=== PATIENT | female | born 1945 | race Caucasian/White ===

== ENCOUNTER 2017-08-20 01:30 | Inpatient (IN) | payer MEDICARE, MEDICAID ==
[~2017-08-20] VITALS: Ht 152.4 cm; Wt 47.7 kg
[~2017-08-20 01:30] MED LIST: ALBU2.5V NEB; ALBU8.5H5 INH; CALC-112 PO; CLIN300C8 PO; ENOX40SY4 SQ; FLUO10TA PO; FURO-93 PO; Fentanyl Patch TD; GABA300C10 PO; LORA-445 PO; MULT-6 PO; OMEP-110 PO; OXYC5CAP2 PO; POTA10TA11 PO; Robitussin PO
[2017-08-20] MEDS ORDERED: HYDR-3240 PO (02:07)
[2017-08-20] MEDS ORDERED: TRAM50TA2 PO (02:07)
[2017-08-20] MEDS ORDERED: LISI5TAB7 PO (02:07)
[2017-08-20] MEDS ORDERED: ALEN70TA5 PO (02:07)
[2017-08-20] MEDS ORDERED: SUVO15TA PO (02:07)
[2017-08-20] MEDS ORDERED: MELO7.5T31 PO (02:07)
[2017-08-20] MEDS ORDERED: ALBUTEROL/IPRATROPIUM 2.5MG/0.5MG, 3 ML NPPB ONE (02:30)
[2017-08-20 02:34] LABS: MEAN CORPUSCULAR HEMOGLOBIN 27.9 pg (27.0-34.8); MEAN CORPUSCULAR HGB CONC 32.9 g/dL (32.4-35.8); MEAN CORPUSCULAR VOLUME 84.9 fL (80-100); MEAN PLATELET VOLUME 7.5 fL (7.4-10.4); PLATELET COUNT 338 x10^3/uL (130-400); RED BLOOD COUNT 4.23 x10^6/uL (3.82-5.3); RED CELL DISTRIBUTION WIDTH 15.1 % (9.6-15.2)
[2017-08-20 02:46] LABS: ALBUMIN 2.8 g/dL (3.4-5.0); ANION GAP 8 mmol/L (5-15); CALCIUM 8.2 mg/dL (8.5-10.1); CHLORIDE 104 mmol/L (98-107); CREATININE 1.56 mg/dL (0.55-1.02)
[2017-08-20 02:52] LABS: TROPONIN I 0.216 ng/mL (0.000-0.045)
[2017-08-20 02:55] LABS: MD YES
[2017-08-20 02:56] LABS: BAND#(MANUAL) 0.51 x10^3/uL; BANDS%(MANUAL) 3 % (0-7); LYMPH#(MANUAL) 0.85 x10^3/uL (1-3.4); LYMPHS% (MANUAL) 5 % (22-44); MONOS#(MANUAL) 1.02 x10^3/uL (0.3-2.7); MONOS% (MANUAL) 6 % (2-9); SEG#(MANUAL) 14.62 x10^3/uL (1.8-6.8); SEGS% (MANUAL) 86 % (42-75)
[2017-08-20 02:57] LABS: <PLATELET ESTIMATE> ADEQUATE; <PLT MORPHOLOGY> NORMAL PLT MORPH; ANISOCYTOSIS 1+; POLYCHROMASIA 1+
[2017-08-20] MEDS ORDERED: OMNIPAQUE 350 MG/ML, 100ML BOTTLE ONE (03:24)
[2017-08-20] MEDS ORDERED: ALBUTEROL/IPRATROPIUM 2.5MG/0.5MG, 3 ML ONE (03:30)
[2017-08-20] MEDS ORDERED: SODIUM CHLORIDE 0.9% 1,000ML IVBOLUS ONE (03:30)
[2017-08-20] MEDS ORDERED: CEFTRIAXONE PMX 1GM/50ML 50 ML IV ONE (04:00)
[2017-08-20] MEDS ORDERED: ONDANSETRON 2MG/ML, 2ML IVPush PRN ×2 (04:00→07:00)
[2017-08-20] MEDS ORDERED: CEFTRIAXONE PMX 1GM/50ML 50 ML ONE (04:12)
[2017-08-20 05:45] VITALS: BP 121/90
[2017-08-20] MEDS ORDERED: ACETAMINOPHEN 325 MG TABLET PO PRN (07:00)
[2017-08-20] MEDS ORDERED: FUROSEMIDE 40 MG/4 ML IV ONE (07:30)
[2017-08-20] MEDS ORDERED: ENOXAPARIN 30 MG/0.3 ML SQ SCH (07:30)
[2017-08-20] MEDS ORDERED: ALBUTEROL/IPRATROPIUM 2.5MG/0.5MG, 3 ML NPPB PRN (08:00)
[2017-08-20] MEDS: methylPREDNISolone SOD SUCC 40 MG/ML IVPush SCH ×3 (08:18→19:29)
[2017-08-20] MEDS: GABAPENTIN 300 MG CAPSULE PO SCH ×2 (08:19→20:37)
[2017-08-20] MEDS: NICOTINE 14MG/24 HR PATCH.TD24 TD SCH (08:19)
[2017-08-20] MEDS: LISINOPRIL 5 MG TABLET PO SCH (08:19)
[2017-08-20] MEDS: OMEPRAZOLE 20 MG CAPSULE.DR PO SCH (08:19)
[2017-08-20 08:20] VITALS: BP 115/77
[2017-08-20] MEDS: SUVOREXANT 15 MG HOMEMEDPO SCH (08:22)
[2017-08-20 08:49] LABS: TROPONIN I 0.198 ng/mL (0.000-0.045)
[2017-08-20] MEDS: ALBUTEROL/IPRATROPIUM 2.5MG/0.5MG, 3 ML NPPB SCH ×3 (10:31→19:39)
[2017-08-20 14:35] VITALS: BP 126/81
[2017-08-20 15:00] VITALS: BP 118/82
[2017-08-20] MEDS ORDERED: LORazepam 2 MG/ML, 1ML IVPush PRN (17:30)
[2017-08-20 20:12] VITALS: BP 136/72
[2017-08-20] MEDS: LORazepam 0.5MG TABLET PO SCH (20:37)
[2017-08-20] MEDS: GUAIFENESIN/DM 200-20MG, 10ML UDC PO PRN (20:37)
[2017-08-20] MEDS: HYDROcodone/APAP 5/325 TABLET PO PRN (20:55)
[2017-08-21] MEDS: methylPREDNISolone SOD SUCC 40 MG/ML IVPush SCH ×2 (01:09→08:03)
[2017-08-21 02:18] VITALS: BP 125/83
[2017-08-21 03:06] VITALS: BP 136/89
[2017-08-21 06:10] LABS: CHLORIDE 106 mmol/L (98-107)
[2017-08-21 06:17] LABS: MEAN CORPUSCULAR HEMOGLOBIN 28.1 pg (27.0-34.8); MEAN CORPUSCULAR HGB CONC 32.8 g/dL (32.4-35.8); MEAN CORPUSCULAR VOLUME 85.7 fL (80-100); MEAN PLATELET VOLUME 7.8 fL (7.4-10.4); PLATELET COUNT 310 x10^3/uL (130-400); RED BLOOD COUNT 4.25 x10^6/uL (3.82-5.3); RED CELL DISTRIBUTION WIDTH 15.6 % (9.6-15.2)
[2017-08-21 06:31] LABS: ALANINE AMINOTRANSFERASE 20 U/L (12-78); ALBUMIN 2.8 g/dL (3.4-5.0); ALKALINE PHOSPHATASE 130 U/L (45-117); ANION GAP 10 mmol/L (5-15); BILIRUBIN,TOTAL 0.4 mg/dL (0.2-1.0); CALCIUM 8.1 mg/dL (8.5-10.1); CREATININE 0.87 mg/dL (0.55-1.02); TOTAL PROTEIN 6.9 g/dL (6.4-8.2)
[2017-08-21 06:33] LABS: BASOPHILS % (AUTO) 0 % (0-1); EOSINOPHILS % (AUTO) 0 % (1-7); LYMPHOCYTES # (AUTO) 0.67 x10^3/uL (1-3.4); LYMPHOCYTES % (AUTO) 6 % (22-44); MD SCAN; MONOCYTES # (AUTO) 0.24 x10^3/uL (0.2-0.8); MONOCYTES % (AUTO) 2 % (2-9); NEUTROPHILS # (AUTO) 9.83 x10^3/uL (1.8-6.8); NEUTROPHILS % (AUTO) 92 % (42-75)
[2017-08-21] MEDS: ALBUTEROL/IPRATROPIUM 2.5MG/0.5MG, 3 ML NPPB SCH ×4 (07:15→18:53)
[2017-08-21 08:00] VITALS: BP 157/100
[2017-08-21] MEDS: FUROSEMIDE 40 MG TABLET PO SCH (08:02)
[2017-08-21] MEDS: NICOTINE 14MG/24 HR PATCH.TD24 TD SCH (08:02)
[2017-08-21] MEDS: LISINOPRIL 5 MG TABLET PO SCH (08:03)
[2017-08-21] MEDS: SUVOREXANT 15 MG HOMEMEDPO SCH (08:03)
[2017-08-21] MEDS: ENOXAPARIN 40 MG/0.4 ML SQ SCH (08:03)
[2017-08-21] MEDS: OMEPRAZOLE 20 MG CAPSULE.DR PO SCH (08:03)
[2017-08-21] MEDS: GABAPENTIN 300 MG CAPSULE PO SCH ×2 (08:03→20:07)
[2017-08-21 12:11] LABS: CULTURE INDICATED? NO; MICROSCOPIC NOT IND
[2017-08-21 13:28] VITALS: BP 137/90
[2017-08-21] MEDS: HYDROcodone/APAP 5/325 TABLET PO PRN ×2 (16:28→20:07)
[2017-08-21 19:36] VITALS: BP_SYST 151; BP_SYST 186; BP_DIAS 104; BP_DIAS 84
[2017-08-21] MEDS: LORazepam 0.5MG TABLET PO SCH (20:07)
[2017-08-22 01:53] VITALS: BP 147/89
[2017-08-22] MEDS: GUAIFENESIN/DM 200-20MG, 10ML UDC PO PRN ×2 (02:51→17:21)
[2017-08-22] MEDS: HYDROcodone/APAP 5/325 TABLET PO PRN ×3 (02:51→17:21)
[2017-08-22 05:26] LABS: ALBUMIN 2.8 g/dL (3.4-5.0); ANION GAP 4 mmol/L (5-15); CHLORIDE 103 mmol/L (98-107)
[2017-08-22 05:31] LABS: ALANINE AMINOTRANSFERASE 21 U/L (12-78); ALKALINE PHOSPHATASE 115 U/L (45-117); BILIRUBIN,TOTAL 0.4 mg/dL (0.2-1.0); TOTAL PROTEIN 6.5 g/dL (6.4-8.2)
[2017-08-22] MEDS: ALBUTEROL/IPRATROPIUM 2.5MG/0.5MG, 3 ML NPPB SCH ×4 (07:40→19:28)
[2017-08-22 08:17] VITALS: BP 182/101
[2017-08-22 08:29] VITALS: BP 160/101
[2017-08-22] MEDS: GABAPENTIN 300 MG CAPSULE PO SCH ×2 (08:30→20:31)
[2017-08-22] MEDS: FUROSEMIDE 40 MG TABLET PO SCH (08:30)
[2017-08-22] MEDS: OMEPRAZOLE 20 MG CAPSULE.DR PO SCH (08:30)
[2017-08-22] MEDS: NICOTINE 14MG/24 HR PATCH.TD24 TD SCH (08:31)
[2017-08-22] MEDS: ENOXAPARIN 40 MG/0.4 ML SQ SCH (08:31)
[2017-08-22] MEDS: SUVOREXANT 15 MG HOMEMEDPO SCH (08:31)
[2017-08-22] MEDS: LISINOPRIL 5 MG TABLET PO SCH (08:31)
[2017-08-22 13:01] VITALS: BP 150/95
[2017-08-22 16:13] VITALS: BP 134/90
[2017-08-22 19:08] VITALS: BP 146/95
[2017-08-22] MEDS: LORazepam 0.5MG TABLET PO SCH (20:31)
[2017-08-23 01:02] VITALS: BP 151/96
[2017-08-23] MEDS: HYDROcodone/APAP 5/325 TABLET PO PRN ×2 (01:53→09:36)
[2017-08-23 05:41] LABS: ANION GAP 4 mmol/L (5-15); CALCIUM 8.4 mg/dL (8.5-10.1); CHLORIDE 97 mmol/L (98-107); CREATININE 0.65 mg/dL (0.55-1.02)
[2017-08-23 06:48] VITALS: BP 140/91
[2017-08-23] MEDS: ALBUTEROL/IPRATROPIUM 2.5MG/0.5MG, 3 ML NPPB SCH ×4 (07:16→14:52)
[2017-08-23] MEDS: SUVOREXANT 15 MG HOMEMEDPO SCH (09:00)
[2017-08-23] MEDS: ENOXAPARIN 40 MG/0.4 ML SQ SCH (09:03)
[2017-08-23] MEDS: OMEPRAZOLE 20 MG CAPSULE.DR PO SCH (09:04)
[2017-08-23] MEDS: GABAPENTIN 300 MG CAPSULE PO SCH (09:04)
[2017-08-23] MEDS: LISINOPRIL 5 MG TABLET PO SCH (09:04)
[2017-08-23] MEDS: NICOTINE 14MG/24 HR PATCH.TD24 TD SCH (09:04)
[2017-08-23] MEDS: FUROSEMIDE 40 MG TABLET PO SCH (09:04)
[2017-08-23] MEDS ORDERED: NICO-486 TD (12:32)
[2017-08-23] MEDS ORDERED: LISI5TAB7 PO (12:32)
[2017-08-23] MEDS ORDERED: FURO40TA6 PO (12:32)
[2017-08-23] MEDS ORDERED: PRED20TA PO (12:32)
[2017-08-23] MEDS ORDERED: IPRA3AMP NPPB (12:32)
[2017-08-23 13:52] VITALS: BP 111/70
[2017-08-23] MEDS ORDERED: LISINOPRIL 5 MG TABLET PO SCH (21:00)
== END 2017-08-23 18:37 | disposition home health service (06) | DRG 682 ==
LOC: ED 04:17 → EDIP 04:22 → 5SO 05:29 → 3NE 08-22 16:10
PROVIDERS: ADMIT Student in an Organized Health Care Education/Training Program; ATTEND Internal Medicine
DX: N17.9 Acute kidney failure, unspecified (principal); J96.21 Acute and chronic respiratory failure with hypoxia; G93.40 Encephalopathy, unspecified; I50.31 Acute diastolic (congestive) heart failure; E44.0 Moderate protein-calorie malnutrition; G62.9 Polyneuropathy, unspecified; J44.1 Chronic obstructive pulmonary disease with (acute) exacerbation; M80.00XA Age-related osteoporosis with current pathological fracture, unspecified site, initial encounter for fracture; I11.0 Hypertensive heart disease with heart failure; D72.829 Elevated white blood cell count, unspecified; F17.210 Nicotine dependence, cigarettes, uncomplicated; F41.8 Other specified anxiety disorders; G47.00 Insomnia, unspecified; G89.4 Chronic pain syndrome; S00.83XA Contusion of other part of head, initial encounter; Z68.20 Body mass index [BMI] 20.0-20.9, adult
CPT/HCPCS: 36415; 70450; 71010; 71275; 80048; 80053; 81003; 82040; 82962; 83605; 83880; 84145; 84484; 85025; 87040; 93005; 93306; 94640; 99285; J0696; J1650; J1940; J2405; J7620; Q9967; J2060; J2920; J7030; J7512